=== PATIENT | male | born 1955 | race Caucasian/White ===

== ENCOUNTER → 2016-03-26 | Outpatient (CLI) | payer OTHER ==
[2016-03-26 13:16] LABS: MEAN CORPUSCULAR HEMOGLOBIN 31.1 pg (27.0-33.0); MEAN CORPUSCULAR HGB CONC 32.7 g/dl (32.0-36.5); WHITE BLOOD COUNT 3.2 K/mm3 (4.0-10.0)
[2016-03-26 13:18] LABS: ALBUMIN 3.8 GM/DL (3.2-5.2); ALBUMIN/GLOBULIN RATIO 1.36 (1.00-1.93); ALKALINE PHOSPHATASE 49 U/L (45-117); ALT/SGPT 29 U/L (12-78); ANION GAP 6 MEQ/L (8-16); AST/SGOT 18 U/L (15-37); BILIRUBIN,TOTAL 0.6 MG/DL (0.2-1.0); BLOOD UREA NITROGEN 20 MG/DL (7-18); CALCIUM LEVEL 8.9 MG/DL (8.8-10.2); CARBON DIOXIDE LEVEL 33 MEQ/L (21-32); CHLORIDE LEVEL 104 MEQ/L (98-107); CHOLESTEROL LEVEL 192 MG/DL (<200); GLOMERULAR FILTRATION RATE > 60.0 (>49); GLUCOSE, FASTING 97 MG/DL (80-110); POTASSIUM SERUM 4.1 MEQ/L (3.5-5.1); SODIUM LEVEL 143 MEQ/L (136-145); TOTAL PROTEIN 6.6 GM/DL (6.4-8.2); TRIGLYCERIDES LEVEL 75 MG/DL (<150)
== END ==
LOC: M WUC 09:16
PROVIDERS: ATTEND Family Medicine
DX: E78.5 Hyperlipidemia, unspecified (principal); E29.1 Testicular hypofunction

== ENCOUNTER → 2016-10-01 | Outpatient (CLI) | payer OTHER ==
[2016-10-01 14:07] LABS: MEAN CORPUSCULAR HEMOGLOBIN 32.1 pg (27.0-33.0); MEAN CORPUSCULAR HGB CONC 32.7 g/dl (32.0-36.5); MEAN CORPUSCULAR VOLUME 98.2 fl (80.0-96.0); RED CELL DISTRIBUTION WIDTH 12.6 % (11.5-14.5); WHITE BLOOD COUNT 3.2 K/mm3 (4.0-10.0)
[2016-10-01 14:16] LABS: ALBUMIN 3.9 GM/DL (3.2-5.2); ALBUMIN/GLOBULIN RATIO 1.34 (1.00-1.93); ALKALINE PHOSPHATASE 52 U/L (45-117); ALT/SGPT 26 U/L (12-78); ANION GAP 6 MEQ/L (8-16); AST/SGOT 17 U/L (15-37); BILIRUBIN,TOTAL 0.6 MG/DL (0.2-1.0); BLOOD UREA NITROGEN 26 MG/DL (7-18); CARBON DIOXIDE LEVEL 30 MEQ/L (21-32); CHLORIDE LEVEL 106 MEQ/L (98-107); CHOLESTEROL LEVEL 174 MG/DL (<200); GLOMERULAR FILTRATION RATE > 60.0 (>49); GLUCOSE, FASTING 90 MG/DL (80-110); POTASSIUM SERUM 4.3 MEQ/L (3.5-5.1); SODIUM LEVEL 142 MEQ/L (136-145); TOTAL PROTEIN 6.8 GM/DL (6.4-8.2); TRIGLYCERIDES LEVEL 68 MG/DL (<150)
== END ==
LOC: M WUC 08:52
PROVIDERS: ATTEND Family Medicine
DX: F32.9 Major depressive disorder, single episode, unspecified (principal); E29.1 Testicular hypofunction; Z79.899 Other long term (current) drug therapy; Z12.5 Encounter for screening for malignant neoplasm of prostate

== ENCOUNTER → 2017-12-08 | Outpatient (REF) | payer OTHER | LOC: M SFHCLERA 08:57 | DX: L82.1 Other seborrheic keratosis (principal) | CPT/HCPCS: 88305 ==

== ENCOUNTER → 2018-04-07 | Outpatient (CLI) | payer OTHER ==
[2018-04-07 13:38] LABS: HEMOGLOBIN 13.6 g/dl (13.5-17.5); MEAN CORPUSCULAR HEMOGLOBIN 30.9 pg (27.0-33.0); MEAN CORPUSCULAR HGB CONC 32.4 g/dl (32.0-36.5); MEAN CORPUSCULAR VOLUME 95.5 fl (80.0-96.0); PLATELET COUNT, AUTOMATED 274 10^3/uL (150-450); WHITE BLOOD COUNT 4.7 10^3/uL (4.0-10.0)
[2018-04-07 13:52] LABS: ALBUMIN 3.6 GM/DL (3.2-5.2); ALT/SGPT 21 U/L (12-78); BILIRUBIN,TOTAL 0.4 MG/DL (0.2-1.0); BLOOD UREA NITROGEN 22 MG/DL (7-18); CALCIUM LEVEL 8.9 MG/DL (8.8-10.2); CARBON DIOXIDE LEVEL 32 MEQ/L (21-32); CHLORIDE LEVEL 102 MEQ/L (98-107); CHOLESTEROL LEVEL 184 MG/DL (<200); CHOLESTEROL RISK RATIO 3.345 (<5); CREATININE FOR GFR 1.07 MG/DL (0.70-1.30); GLOMERULAR FILTRATION RATE > 60.0 (>49); GLUCOSE, FASTING 97 MG/DL (70-100); HDL CHOLESTEROL 55 MG/DL (>40); LDL CHOLESTEROL 117 MG/DL (<100); NON-HDL-C 129 MG/DL; POTASSIUM SERUM 4.3 MEQ/L (3.5-5.1); SODIUM LEVEL 140 MEQ/L (136-145); TESTOSTERONE 831 NG/DL (241-827); TOTAL PROTEIN 6.7 GM/DL (6.4-8.2); TRIGLYCERIDES LEVEL 61 MG/DL (<150)
== END ==
LOC: M WUC 09:18
PROVIDERS: ATTEND Family Medicine
DX: Z79.899 Other long term (current) drug therapy (principal); E78.5 Hyperlipidemia, unspecified

== ENCOUNTER → 2019-01-31 | Outpatient (CLI) | payer OTHER, MEDICARE ==
--- NOTE | 2019-01-31 09:34 | REP ---
Two-view chest: 01/31/2019. Indication: Cough. Bronchitis. Comparison: None. Findings: No focal airspace consolidation is present. There is minimal linear atelectasis of the lung bases. There is no pleural effusion or pneumothorax. The cardiomediastinal silhouette is unremarkable. Surgical anchor of the right proximal humerus is noted. Impression: No acute cardiopulmonary process. Electronically Signed by Garo Gatica DO 01/31/2019 09:26 A
== END ==
LOC: M ADAMS 08:45
PROVIDERS: ATTEND Family Medicine
DX: J20.8 Acute bronchitis due to other specified organisms (principal)

== ENCOUNTER → 2019-02-09 | Outpatient (REF) | payer MEDICARE, OTHER ==
[2019-02-09 18:09] LABS: HEMATOCRIT 43.8 % (42.0-52.0); HEMOGLOBIN 13.5 g/dl (13.5-17.5); MEAN CORPUSCULAR HEMOGLOBIN 29.9 pg (27.0-33.0); MEAN CORPUSCULAR HGB CONC 30.8 g/dl (32.0-36.5); MEAN CORPUSCULAR VOLUME 97.1 fl (80.0-96.0); PLATELET COUNT, AUTOMATED 300 10^3/uL (150-450); RED BLOOD COUNT 4.51 10^6/uL (4.30-6.10); WHITE BLOOD COUNT 6.3 10^3/uL (4.0-10.0)
[2019-02-09 18:35] LABS: MONO SCRN NEGATIVE (NEGATIVE)
[2019-02-09 18:36] LABS: ALBUMIN 3.6 GM/DL (3.2-5.2); ALT/SGPT 20 U/L (12-78); BILIRUBIN,TOTAL 0.3 MG/DL (0.2-1.0); BLOOD UREA NITROGEN 31 MG/DL (7-18); C REACTIVE PROTEIN QUANTITATIV 2.67 MG/DL (0.00-0.30); CALCIUM LEVEL 9.5 MG/DL (8.8-10.2); CARBON DIOXIDE LEVEL 33 MEQ/L (21-32); CHLORIDE LEVEL 103 MEQ/L (98-107); CREATININE FOR GFR 1.04 MG/DL (0.70-1.30); GLOMERULAR FILTRATION RATE > 60.0 (>49); GLUCOSE, FASTING 82 MG/DL (70-100); POTASSIUM SERUM 4.4 MEQ/L (3.5-5.1); SODIUM LEVEL 139 MEQ/L (136-145); TOTAL PROTEIN 7.7 GM/DL (6.4-8.2)
[2019-02-09 18:44] LABS: ERYTHROCYTE SEDIMENTATION RATE 45 mm/hr (0-20)
== END ==
LOC: M SFHCPLAZ 16:40
PROVIDERS: ATTEND Physician Assistant Medical
DX: R50.9 Fever, unspecified (principal); R05 Cough

== ENCOUNTER → 2019-02-13 | Outpatient (CLI) | payer MEDICARE, OTHER | LOC: M LAB 11:09 | PROVIDERS: ATTEND Physician Assistant Medical | DX: R50.9 Fever, unspecified (principal) ==

== ENCOUNTER → 2019-02-17 | Outpatient (CLI) | payer MEDICARE, OTHER ==
[~2019-02-17] MED LIST: ISOVUE-370 76% 100ML VIAL (Q9967) As Ordered ONE
--- NOTE | 2019-02-17 08:39 | REP ---
Clinical: Cough and fever. Technique: Axial contrast enhanced images from the thoracic inlet to the upper abdomen with coronal and sagittal re-formations. Findings: The bilateral lung fuchs are relatively well aerated and clear. Minimal age-related interstitial changes are appreciated along with mild bronchiectasis. There is a solitary 4 mm noncalcified perifissural nodule at the lingula (image 73). No consolidation. No effusion. No pneumothorax. Mediastinal and hilar lymph nodes measure up to 13 mm and are nonspecific. Further evaluation of the mediastinum demonstrates relatively normal thoracic aorta, pulmonary vasculature, and heart/pericardium. Surrounding musculoskeletal structures are intact. Impression: 4 mm solitary noncalcified nodule. Low-risk patient is require annual follow-up while high risk patient may warrant initial 6-month follow-up examination unless prior examinations are available for comparison. Electronically Signed by Willam Borrego MD 02/17/2019 08:31 A
--- NOTE | 2019-02-17 08:58 | REPVR ---
PROCEDURE INFORMATION: Exam: CT Maxillofacial Without Contrast, Sinus Exam date and time: 02/17/2019 7:44 AM Age: 63 years old Clinical indication: Pain; Prior surgery; Surgery date: 6+ months; Surgery type: Sinus surgery 5 years ago; Additional info: Cough, fever unspecified nasal inf? TECHNIQUE: Imaging protocol: CT Maxillofacial without contrast. Focus on the sinuses. Radiation optimization: All CT scans at this facility use at least one of these dose optimization techniques: automated exposure control; mA and/or kV adjustment per patient size (includes targeted exams where dose is matched to clinical indication); or iterative reconstruction. COMPARISON: No relevant prior studies available. FINDINGS: Frontal sinuses: No air-fluid levels. Ethmoid air cells: Bilateral medial maxillary antrostomy and partial ethmoidectomy. Sphenoid sinuses: Normal. No air-fluid levels. Maxillary sinuses: Normal. No air-fluid levels. Ostiomeatal units are patent. Orbits: Examination reveals bilateral globes to be normal in size and morphology. The optic nerves are normal in thickness and symmetric bilaterally. The extraocular muscles are normal in thickness and signal intensity. The retroconal fat has a normal appearance. The lacrimal glands appear normal bilaterally. Nasal cavity/Septum: The nasal septum is in the midline. There is atrophy of bilateral nasal turbinates. Soft tissues: Unremarkable. Bones/joints: The visualized paranasal sinuses are clear. There are no air fluid levels to suggest acute sinusitis. The bony orbital lentz are intact. No fractures are identified. IMPRESSION: 1. Bilateral medial maxillary antrostomy and partial ethmoidectomy. 2. The visualized paranasal sinuses are clear. There are no air fluid levels to suggest acute sinusitis. 3. The nasal septum is in the midline. 4. There is atrophy of bilateral nasal turbinates. Electronically signed by: Quintin Jones On 02/17/2019 08:58:26 AM
== END ==
LOC: M RAD 07:28
PROVIDERS: ATTEND Physician Assistant Medical
DX: R05 Cough (principal); R50.9 Fever, unspecified
CPT/HCPCS: 70486; 71260; Q9967

== ENCOUNTER → 2019-02-24 | Outpatient (CLI) | payer MEDICARE, OTHER ==
[2019-02-24 14:01] LABS: BASO % 0.7 % (0.0-1.0); EOS % 0.2 % (0.0-3.0); HEMATOCRIT 43.7 % (42.0-52.0); HEMOGLOBIN 13.3 g/dl (13.5-17.5); LYMPH % 17.4 % (24.0-44.0); MEAN CORPUSCULAR HEMOGLOBIN 29.7 pg (27.0-33.0); MEAN CORPUSCULAR HGB CONC 30.4 g/dl (32.0-36.5); MEAN CORPUSCULAR VOLUME 97.5 fl (80.0-96.0); MONO # 0.5 10^3/uL (0.0-0.8); MONO % 8.9 % (0.0-5.0); NEUTROPHILS # 4.2 10^3/uL (1.5-8.5); NEUTROPHILS % 71.4 % (36.0-66.0); PLATELET COUNT, AUTOMATED 269 10^3/uL (150-450); RED BLOOD COUNT 4.48 10^6/uL (4.30-6.10); WHITE BLOOD COUNT 5.8 10^3/uL (4.0-10.0)
[2019-02-24 14:38] LABS: ERYTHROCYTE SEDIMENTATION RATE 12 mm/hr (0-20)
== END ==
LOC: M PLALAB 11:18
PROVIDERS: ATTEND Family Medicine
DX: R50.9 Fever, unspecified (principal)

== ENCOUNTER → 2019-03-28 | Outpatient (REF) | payer MEDICARE, OTHER ==
[2019-03-28 13:08] LABS: HEMATOCRIT 47.2 % (42.0-52.0); HEMOGLOBIN 14.3 g/dl (13.5-17.5); MEAN CORPUSCULAR HEMOGLOBIN 29.6 pg (27.0-33.0); MEAN CORPUSCULAR HGB CONC 30.3 g/dl (32.0-36.5); MEAN CORPUSCULAR VOLUME 97.7 fl (80.0-96.0); PLATELET COUNT, AUTOMATED 268 10^3/uL (150-450); RED BLOOD COUNT 4.83 10^6/uL (4.30-6.10); WHITE BLOOD COUNT 4.4 10^3/uL (4.0-10.0)
[2019-03-28 13:14] LABS: ALBUMIN 4.2 GM/DL (3.2-5.2); ALT/SGPT 24 U/L (12-78); BILIRUBIN,TOTAL 0.3 MG/DL (0.2-1.0); BLOOD UREA NITROGEN 27 MG/DL (7-18); CALCIUM LEVEL 9.1 MG/DL (8.8-10.2); CARBON DIOXIDE LEVEL 33 MEQ/L (21-32); CHLORIDE LEVEL 104 MEQ/L (98-107); CHOLESTEROL LEVEL 191 MG/DL (<200); CREATININE FOR GFR 0.91 MG/DL (0.70-1.30); GLOMERULAR FILTRATION RATE > 60.0 (>49); GLUCOSE, FASTING 93 MG/DL (70-100); HDL CHOLESTEROL 62 MG/DL (>40); LDL CHOLESTEROL 110 MG/DL (<100); NON-HDL-C 129 MG/DL; SODIUM LEVEL 140 MEQ/L (136-145); TOTAL PROTEIN 7.6 GM/DL (6.4-8.2); TRIGLYCERIDES LEVEL 94 MG/DL (<150)
[2019-03-28 13:18] LABS: TESTOSTERONE 405 NG/DL (241-827)
== END ==
LOC: M SFHCADAM 10:23
PROVIDERS: ATTEND Family Medicine
DX: E78.5 Hyperlipidemia, unspecified (principal); E34.9 Endocrine disorder, unspecified; Z12.5 Encounter for screening for malignant neoplasm of prostate; Z79.899 Other long term (current) drug therapy
CPT/HCPCS: 80053; 80061; 84403; 85027; G0103; G0402; G0463

== ENCOUNTER → 2020-03-05 | Outpatient (CLI) | payer MEDICARE, OTHER ==
[2020-03-05 18:03] LABS: HEMATOCRIT 43.9 % (42.0-52.0); HEMOGLOBIN 13.7 g/dl (13.5-17.5); MEAN CORPUSCULAR HEMOGLOBIN 30.6 pg (27.0-33.0); MEAN CORPUSCULAR HGB CONC 31.2 g/dl (32.0-36.5); PLATELET COUNT, AUTOMATED 225 10^3/uL (150-450); RED BLOOD COUNT 4.48 10^6/uL (4.30-6.10); WHITE BLOOD COUNT 4.9 10^3/uL (4.0-10.0)
[2020-03-05 18:15] LABS: ALBUMIN 3.8 GM/DL (3.2-5.2); ALT/SGPT 21 U/L (12-78); BILIRUBIN,TOTAL 0.4 MG/DL (0.2-1.0); BLOOD UREA NITROGEN 24 MG/DL (7-18); CALCIUM LEVEL 9.1 MG/DL (8.8-10.2); CARBON DIOXIDE LEVEL 33 MEQ/L (21-32); CHLORIDE LEVEL 106 MEQ/L (98-107); CHOLESTEROL LEVEL 177 MG/DL (<200); CHOLESTEROL RISK RATIO 2.765 (<5); CREATININE FOR GFR 0.93 MG/DL (0.70-1.30); GLOMERULAR FILTRATION RATE > 60.0 (>49); GLUCOSE, FASTING 58 MG/DL (70-100); HDL CHOLESTEROL 64 MG/DL (>40); LDL CHOLESTEROL 95 MG/DL (<100); NON-HDL-C 113 MG/DL; POTASSIUM SERUM 4.6 MEQ/L (3.5-5.1); SODIUM LEVEL 140 MEQ/L (136-145); TOTAL PROTEIN 6.9 GM/DL (6.4-8.2); TRIGLYCERIDES LEVEL 91 MG/DL (<150)
[2020-03-05 18:16] LABS: TOTAL 25(OH) VITAMIN D 31.2 NG/ML (30.0-100.0)
[2020-03-05 18:17] LABS: VITAMIN B12 LEVEL 549 PG/ML (247-911)
[2020-03-07 18:07] LABS: TESTOSTERONE FREE (DIRECT) 7.3 pg/mL (6.6-18.1)
== END ==
LOC: M PLALAB 15:23
PROVIDERS: ATTEND Family Medicine
DX: Z12.5 Encounter for screening for malignant neoplasm of prostate (principal); F32.9 Major depressive disorder, single episode, unspecified; Z79.899 Other long term (current) drug therapy
CPT/HCPCS: 36415; 80053; 80061; 82306; 82607; 84402; 84403; 85027; G0103

== ENCOUNTER → 2020-04-17 | Outpatient (CLI) | payer MEDICARE, OTHER ==
[~2020-04-17] MED LIST changes: +E-Z-GAS II EFFERVESCENT PACKET (SODIUM BICARB./CITRIC ACID/SIMETHICONE) As Ordered ONE; +E-Z-HD 98% w/w 340GM SUSP BTL As Ordered ONE; +E-Z-PAQUE 96% w/w SUSP 176GM BTL As Ordered ONE; -ISOVUE-370 76% 100ML VIAL (Q9967) As Ordered ONE
--- NOTE | 2020-04-17 18:17 | REP ---
INDICATION: DYSPHAGIA, GERD. COMPARISON: None TECHNIQUE: This procedure was performed by Megan Adame [facility], under the direct supervision of Dr. Betts. Images were reviewed with Dr. Betts prior to dictation. Liquid barium and gas producing crystals were given in the erect position, as well as liquid barium in the prone oblique position in order to perform a double contrast upper GI examination. FINDINGS: The transplanter orchid film shows no organomegaly or pathological masses. The intestinal gas pattern is unremarkable. The oral and pharyngeal stages of deglutition were unremarkable. Esophageal transport is prompt and efficient and there is no evidence of esophagitis, stricture, or mucosal ring. There is no evidence of a hiatal hernia. There was no gastroesophageal reflux noted . The stomach lentz are normally outlined. The rugal folds are smooth and regular. There is no gastritis, neoplasm, or ulcerative disease. The duodenal lentz are normally outlined. The mucosal folds are smooth and regular. There is no duodenitis, peptic ulcer disease or neoplasm. The visualized portion of the proximal small bowel appears normal in course and caliber. IMPRESSION: Unremarkable esophagram. 0.2 minutes of fluoroscopy time was utilized for this procedure. Some fluoroscopic images are performed with last image hold technology. These images require no additional radiation. <Electronically signed by Megan Adame > 04/17/20 [id number] <Electronically signed by Yordan Betts > 04/17/20 [id number]
== END ==
LOC: M RAD 08:32
PROVIDERS: ATTEND Physician Assistant Medical
DX: R13.10 Dysphagia, unspecified (principal); K21.9 Gastro-esophageal reflux disease without esophagitis

== ENCOUNTER → 2020-05-05 | Outpatient (CLI) | payer MEDICARE ==
[~2020-05-05] MED LIST changes: -E-Z-GAS II EFFERVESCENT PACKET (SODIUM BICARB./CITRIC ACID/SIMETHICONE) As Ordered ONE; -E-Z-HD 98% w/w 340GM SUSP BTL As Ordered ONE; -E-Z-PAQUE 96% w/w SUSP 176GM BTL As Ordered ONE; +VENL37.598
== END ==
LOC: M LABSMTC 10:23
PROVIDERS: ATTEND Anesthesiology
DX: Z01.812 Encounter for preprocedural laboratory examination (principal); Z20.822 Contact with and (suspected) exposure to COVID-19

== ENCOUNTER 2020-05-10 09:28 | Day surgery (SDC) | payer MEDICARE ==
[~2020-05-10] VITALS: Ht 180.3 cm; Wt 74.8 kg
[~2020-05-10 09:28] MED LIST changes: +ANDR1.62 TOP; +NS 1,000 ML IV ONE; +VITA-243 PO; +VITAD400CA PO
[2020-05-10] MEDS ORDERED: LIDOCAINE 2% 100MG/5ML SDV (FOR ANES.) As Ordered ONE (12:40)
[2020-05-10] MEDS ORDERED: propofoL 500 MG/50 ML VIAL As Ordered ONE (12:40)
[2020-05-10] MEDS ORDERED: fentaNYL 100 MCG/2 ML INJECTION (J3010) As Ordered ONE (12:40)
[2020-05-10] MEDS ORDERED: propofoL 200 MG/20 ML VIAL As Ordered ONE (12:41)
[2020-05-10] MEDS ORDERED: ePHEDrine SULFATE 25 MG/5 ML(5MG/ML) SYRINGE As Ordered ONE (12:54)
--- NOTE | 2020-05-10 13:09 | ROOR ---
Patient Name: Eagle Tse Procedure Date: 05/10/2020 12:22 PM Date of : 1955 Age: 64 Room: [facility] Gender: Male Note Status: Finalized Procedure: Upper GI endoscopy Indications: Dysphagia Providers: Brett Babb MD Referring MD: Prasanna Lovelace MD Requesting Provider: Medicines: Monitored Anesthesia Care Complications: No immediate complications. Procedure: Pre-Anesthesia Assessment: - Prior to the procedure, a History and Physical was performed, and patient medications and allergies were reviewed. The patient is competent. The risks and benefits of the procedure and the sedation options and risks were discussed with the patient. All questions were answered and informed consent was obtained. Patient identification and proposed procedure were verified by the physician, the nurse and the anesthesiologist in the procedure room. Mental Status Examination: alert and oriented. Airway Examination: normal oropharyngeal airway and neck mobility. Respiratory Examination: clear to auscultation. CV Examination: normal. Prophylactic Antibiotics: The patient does not require prophylactic antibiotics. Prior Anticoagulants: The patient has taken no previous anticoagulant or antiplatelet agents. ASA Grade Assessment: II - A patient with mild systemic disease. After reviewing the risks and benefits, the patient was deemed in satisfactory condition to undergo the procedure. The anesthesia plan was to use monitored anesthesia care (MAC). Immediately prior to administration of medications, the patient was re-assessed for adequacy to receive sedatives. The heart rate, respiratory rate, oxygen saturations, blood pressure, adequacy of pulmonary ventilation, and response to care were monitored throughout the procedure. The physical status of the patient was re-assessed after the procedure. The Endoscope was introduced through the mouth, and advanced to the second part of duodenum. The upper GI endoscopy was accomplished without difficulty. The patient tolerated the procedure well. Findings: LA Grade B (one or more mucosal breaks greater than 5 mm, not extending between the tops of two mucosal folds) esophagitis with no bleeding was found 40 to 41 cm from the incisors. Biopsies were taken with a cold forceps for histology. Verification of patient identification for the specimen was done by the physician and nurse using the patient's name, date and medical record number. Estimated blood loss was minimal. A small hiatal hernia was present. Scattered mild inflammation characterized by erythema and granularity was found in the gastric antrum. Biopsies were taken with a cold forceps for Helicobacter pylori testing. The duodenal bulb and second portion of the duodenum were normal. Impression: - LA Grade B reflux esophagitis. Rule out Hester's esophagus. Biopsied. - Small hiatal hernia. - Gastritis. Biopsied. - Normal duodenal bulb and second portion of the duodenum. Recommendation: - Patient has a contact number available for emergencies. The signs and symptoms of potential delayed complications were discussed with the patient. Return to normal activities tomorrow. Written discharge instructions were provided to the patient. - High fiber diet. - Continue present medications. - Await pathology results. - Follow an antireflux regimen. - Telephone GI clinic for pathology results in 2 weeks. - Return to primary care physician. Procedure Code(s): --- Professional --- 56002, Esophagogastroduodenoscopy, flexible, transoral; with biopsy, single or multiple Diagnosis Code(s): --- Professional --- K21.0, Gastro-esophageal reflux disease with esophagitis K44.9, Diaphragmatic hernia without obstruction or gangrene K29.70, Gastritis, unspecified, without bleeding R13.10, Dysphagia, unspecified CPT copyright 2019 [employer]. All rights reserved. The codes documented in this report are preliminary and upon patented hogshead assembler review may be revised to meet current compliance requirements. Brett Babb MD Brett Babb MD 05/10/2020 1:09:00 PM Electronically signed by Brett Babb MD Number of Addenda: 0 Note Initiated On: 05/10/2020 12:22 PM Estimated Blood Loss: Estimated blood loss was minimal.
--- NOTE | 2020-05-10 13:13 | ROOR ---
Patient Name: Eagle Tse Procedure Date: 05/10/2020 12:22 PM Date of : 1955 Age: 64 Room: [facility] Gender: Male Note Status: Finalized Procedure: Colonoscopy Indications: Screening for colorectal malignant neoplasm Providers: Brett Babb MD Referring MD: Prasanna Lovelace MD Requesting Provider: Medicines: Monitored Anesthesia Care Complications: No immediate complications. Procedure: Pre-Anesthesia Assessment: - Prior to the procedure, a History and Physical was performed, and patient medications and allergies were reviewed. The patient is competent. The risks and benefits of the procedure and the sedation options and risks were discussed with the patient. All questions were answered and informed consent was obtained. Patient identification and proposed procedure were verified by the physician, the nurse and the anesthesiologist in the procedure room. Mental Status Examination: alert and oriented. Airway Examination: normal oropharyngeal airway and neck mobility. Respiratory Examination: clear to auscultation. CV Examination: normal. Prophylactic Antibiotics: The patient does not require prophylactic antibiotics. Prior Anticoagulants: The patient has taken no previous anticoagulant or antiplatelet agents. ASA Grade Assessment: II - A patient with mild systemic disease. After reviewing the risks and benefits, the patient was deemed in satisfactory condition to undergo the procedure. The anesthesia plan was to use monitored anesthesia care (MAC). Immediately prior to administration of medications, the patient was re-assessed for adequacy to receive sedatives. The heart rate, respiratory rate, oxygen saturations, blood pressure, adequacy of pulmonary ventilation, and response to care were monitored throughout the procedure. The physical status of the patient was re-assessed after the procedure. The Colonoscope was introduced through the anus and advanced to the cecum, identified by appendiceal orifice and ileocecal valve. The colonoscopy was performed without difficulty. The patient tolerated the procedure well. The quality of the bowel preparation was poor. The terminal ileum, ileocecal valve, appendiceal orifice, and rectum were photographed. Scope insertion time was 2 minutes. Scope withdrawal time was 8 minutes. The total duration of the procedure was 10 minutes. Findings: The perianal and digital rectal examinations were normal. A large amount of semi-liquid semi-solid stool was found from sigmoid to cecum, interfering with visualization. Lavage of the area was performed using a large amount of sterile water, resulting in incomplete clearance with continued poor visualization. Four sessile polyps were found in the recto-sigmoid colon and ascending colon. The polyps were 2 to 4 mm in size. These polyps were removed with a cold snare. Resection and retrieval were complete. Verification of patient identification for the specimen was done by the physician and nurse using the patient's name, date and medical record number. Estimated blood loss was minimal. Non-bleeding external and internal hemorrhoids were found during retroflexion. The hemorrhoids were medium-sized. Impression: - Preparation of the colon was poor. - Stool from sigmoid to cecum. - Four 2 to 4 mm polyps at the recto-sigmoid colon and in the ascending colon, removed with a cold snare. Resected and retrieved. - Non-bleeding external and internal hemorrhoids. Recommendation: - Patient has a contact number available for emergencies. The signs and symptoms of potential delayed complications were discussed with the patient. Return to normal activities tomorrow. Written discharge instructions were provided to the patient. - High fiber diet. - Continue present medications. - Await pathology results. - Repeat colonoscopy in 1 year because the bowel preparation was poor and for surveillance. - Telephone GI clinic for pathology results in 2 weeks. - Return to primary care physician. Procedure Code(s): --- Professional --- 83043, Colonoscopy, flexible; with removal of tumor(s), polyp(s), or other lesion(s) by snare technique Diagnosis Code(s): --- Professional --- Z12.11, Encounter for screening for malignant neoplasm of colon K64.8, Other hemorrhoids K63.5, Polyp of colon CPT copyright 2019 [employer]. All rights reserved. The codes documented in this report are preliminary and upon pre coder review may be revised to meet current compliance requirements. Brett Babb MD Brett Babb MD 05/10/2020 1:13:15 PM Electronically signed by Brett Babb MD Number of Addenda: 0 Note Initiated On: 05/10/2020 12:22 PM Estimated Blood Loss: Estimated blood loss was minimal.
[2020-05-10 13:41] VITALS: BP 102/68
== END 2020-05-10 13:50 | disposition home or self-care (01) ==
LOC: M OPP 09:28
PROVIDERS: ATTEND Internal Medicine Gastroenterology
DX: Z12.11 Encounter for screening for malignant neoplasm of colon (principal); K63.5 Polyp of colon; K64.8 Other hemorrhoids; K21.00 Gastro-esophageal reflux disease with esophagitis, without bleeding; K44.9 Diaphragmatic hernia without obstruction or gangrene; K29.70 Gastritis, unspecified, without bleeding; R13.10 Dysphagia, unspecified; Z79.899 Other long term (current) drug therapy
CPT/HCPCS: 43239; 45385; 88305; J3010

== ENCOUNTER → 2020-12-05 | Outpatient (REF) | payer MEDICARE, OTHER ==
[~2020-12-05] MED LIST changes: -NS 1,000 ML IV ONE
[2020-12-05 14:09] LABS: HEMATOCRIT 46.3 % (42.0-52.0); HEMOGLOBIN 14.3 g/dl (13.5-17.5); MEAN CORPUSCULAR HEMOGLOBIN 30.6 pg (27.0-33.0); MEAN CORPUSCULAR HGB CONC 30.9 g/dl (32.0-36.5); MEAN CORPUSCULAR VOLUME 99.1 fl (80.0-96.0); PLATELET COUNT, AUTOMATED 216 10^3/uL (150-450); RED BLOOD COUNT 4.67 10^6/uL (4.30-6.10); WHITE BLOOD COUNT 3.8 10^3/uL (4.0-10.0)
[2020-12-05 14:54] LABS: ALBUMIN 3.9 GM/DL (3.2-5.2); ALT/SGPT 22 U/L (12-78); BILIRUBIN,TOTAL 0.4 MG/DL (0.2-1.0); BLOOD UREA NITROGEN 26 MG/DL (7-18); CALCIUM LEVEL 8.9 MG/DL (8.8-10.2); CARBON DIOXIDE LEVEL 31 MEQ/L (21-32); CHLORIDE LEVEL 106 MEQ/L (98-107); CHOLESTEROL LEVEL 203 MG/DL (<200); CHOLESTEROL RISK RATIO 2.859 (<5); CREATININE FOR GFR 1.11 MG/DL (0.70-1.30); FREE T4 0.73 NG/DL (0.76-1.46); GLOMERULAR FILTRATION RATE > 60.0 (>49); GLUCOSE, FASTING 94 MG/DL (70-100); HDL CHOLESTEROL 71 MG/DL (>40); LDL CHOLESTEROL 115 MG/DL (<100); NON-HDL-C 132 MG/DL; POTASSIUM SERUM 4.3 MEQ/L (3.5-5.1); SODIUM LEVEL 141 MEQ/L (136-145); TESTOSTERONE 689 NG/DL (241-827); TOTAL PROTEIN 7.4 GM/DL (6.4-8.2); TRIGLYCERIDES LEVEL 84 MG/DL (<150)
== END ==
LOC: M SFHCADAM 10:02
PROVIDERS: ATTEND Family Medicine
DX: F32.9 Major depressive disorder, single episode, unspecified (principal); E78.5 Hyperlipidemia, unspecified; Z12.5 Encounter for screening for malignant neoplasm of prostate; E34.9 Endocrine disorder, unspecified; Z79.899 Other long term (current) drug therapy; R91.1 Solitary pulmonary nodule; H93.19 Tinnitus, unspecified ear; Z00.00 Encounter for general adult medical examination without abnormal findings
CPT/HCPCS: 80053; 80061; 84403; 84439; 84443; 85027; 90732; G0009; G0103; G0463

== ENCOUNTER → 2020-12-13 | Outpatient (CLI) | payer MEDICARE, OTHER ==
--- NOTE | 2020-12-13 11:41 | REP ---
INDICATION: PULMONARY NODULE ON LUNG CT COMPARISON: 02/17/2019 TECHNIQUE: Standard helical technique without contrast FINDINGS: There is no mediastinal or hilar adenopathy. There are no pleural or pericardial effusions. The imaged upper abdomen and imaged osseous structures are unchanged. Evaluation of the lung fuchs shows the 4 mm size nodule seen previously in the lingula is completely stable. There is a 4 mm size nodule in the right lower lobe which is stable. There is a 3 mm size nodule in the right lower lobe which is stable. There is a 7 mm size nodule in the apicoposterior segment of the left upper lobe medially which is stable. No new abnormal nodules, masses, or opacities have developed. IMPRESSION: Stable CT examination the chest with findings as described above. Follow-up as per the revised Fleischner society criteria. <Electronically signed by Salbador Palacios > 12/13/20 [id number]
== END ==
LOC: M RAD 08:48
PROVIDERS: ATTEND Family Medicine
DX: R91.8 Other nonspecific abnormal finding of lung field (principal)

== ENCOUNTER → 2021-04-04 | Outpatient (CLI) | payer MEDICARE | LOC: M LABSMTC 13:07 | PROVIDERS: ATTEND Pediatrics | DX: Z11.52 Encounter for screening for COVID-19 (principal); Z20.822 Contact with and (suspected) exposure to COVID-19 | CPT/HCPCS: C9803; U0003 ==

== ENCOUNTER → 2021-05-28 | Outpatient (CLI) | payer MEDICARE ==
[~2021-05-28] MED LIST changes: +PROT20TA11 PO; -VENL37.598; +VENL37.598 PO; +VENL75CA2 PO
== END ==
LOC: M LABSMTC 09:42
PROVIDERS: ATTEND Anesthesiology
DX: Z01.818 Encounter for other preprocedural examination (principal); Z20.822 Contact with and (suspected) exposure to COVID-19

== ENCOUNTER 2021-06-02 09:13 | Day surgery (SDC) | payer MEDICARE ==
[~2021-06-02] VITALS: Ht 180.3 cm; Wt 76.1 kg
[~2021-06-02 09:13] MED LIST changes: +NS 1,000 ML IV ONE
[2021-06-02] MEDS ORDERED: fentaNYL 100 MCG/2 ML INJECTION As Ordered ONE ×2 (10:37→11:49)
[2021-06-02 11:35] VITALS: BP 107/62
[2021-06-02] MEDS ORDERED: propofoL 200 MG/20 ML VIAL As Ordered ONE (14:20)
[2021-06-02] MEDS ORDERED: LIDOCAINE 2% 100MG/5ML SDV (FOR ANES.) As Ordered ONE (14:20)
== END 2021-06-02 12:05 | disposition home or self-care (01) ==
LOC: M OPP 09:13
PROVIDERS: ATTEND Internal Medicine Gastroenterology
DX: Z12.11 Encounter for screening for malignant neoplasm of colon (principal); Z86.010 Personal history of colon polyps; K64.8 Other hemorrhoids; K21.00 Gastro-esophageal reflux disease with esophagitis, without bleeding; K44.9 Diaphragmatic hernia without obstruction or gangrene; K29.70 Gastritis, unspecified, without bleeding; Z79.899 Other long term (current) drug therapy
CPT/HCPCS: 43239; 88305; G0105; J3010

== ENCOUNTER → 2021-07-15 | Outpatient (CLI) | payer MEDICARE, OTHER ==
[~2021-07-15] MED LIST changes: -NS 1,000 ML IV ONE
[2021-07-15 13:13] LABS: HEMATOCRIT 44.1 % (42.0-52.0); MEAN CORPUSCULAR HEMOGLOBIN 31.3 pg (27.0-33.0); MEAN CORPUSCULAR HGB CONC 31.7 g/dl (32.0-36.5); MEAN CORPUSCULAR VOLUME 98.7 fl (80.0-96.0); PLATELET COUNT, AUTOMATED 205 10^3/uL (150-450); RED BLOOD COUNT 4.47 10^6/uL (4.30-6.10); WHITE BLOOD COUNT 3.6 10^3/uL (4.0-10.0)
[2021-07-15 14:00] LABS: ALBUMIN 3.7 GM/DL (3.2-5.2); ALT/SGPT 19 U/L (12-78); BILIRUBIN,TOTAL 0.5 MG/DL (0.2-1.0); BLOOD UREA NITROGEN 20 MG/DL (7-18); CALCIUM LEVEL 8.6 MG/DL (8.8-10.2); CARBON DIOXIDE LEVEL 30 MEQ/L (21-32); CHLORIDE LEVEL 108 MEQ/L (98-107); CHOLESTEROL LEVEL 190 MG/DL (<200); CHOLESTEROL RISK RATIO 2.714 (<5); CREATININE FOR GFR 1.02 MG/DL (0.70-1.30); GLOMERULAR FILTRATION RATE > 60.0 (>49); GLUCOSE, FASTING 97 MG/DL (70-100); HDL CHOLESTEROL 70 MG/DL (>40); LDL CHOLESTEROL 107 MG/DL (<100); NON-HDL-C 120 MG/DL; POTASSIUM SERUM 4.6 MEQ/L (3.5-5.1); SODIUM LEVEL 140 MEQ/L (136-145); TESTOSTERONE 269 NG/DL (241-827); TOTAL PROTEIN 6.8 GM/DL (6.4-8.2); TRIGLYCERIDES LEVEL 66 MG/DL (<150)
== END ==
LOC: M PLALAB 09:53
PROVIDERS: ATTEND Family Medicine
DX: F32.9 Major depressive disorder, single episode, unspecified (principal); Z79.899 Other long term (current) drug therapy; E29.1 Testicular hypofunction; Z12.5 Encounter for screening for malignant neoplasm of prostate; E78.5 Hyperlipidemia, unspecified
CPT/HCPCS: 36415; 80053; 80061; 84403; 85027; G0103

== ENCOUNTER → 2022-02-26 | Outpatient (CLI) | payer MEDICARE ==
[2022-02-28 04:07] LABS: TESTOSTERONE FREE (DIRECT) 4.2 pg/mL (6.6-18.1)
== END ==
LOC: M WUC 10:36
PROVIDERS: ATTEND Anesthesiology Pain Medicine
DX: E29.1 Testicular hypofunction (principal)

== ENCOUNTER → 2022-05-11 | Outpatient (CLI) | payer MEDICARE, OTHER | LOC: M WUC 08:42 | PROVIDERS: ATTEND Family Medicine | DX: Z86.39 Personal history of other endocrine, nutritional and metabolic disease (principal) ==

== ENCOUNTER → 2022-07-14 | Outpatient (CLI) | payer MEDICARE, OTHER | LOC: M ADAMS 12:03 | PROVIDERS: ATTEND Family Medicine | DX: M18.11 Unilateral primary osteoarthritis of first carpometacarpal joint, right hand (principal) ==

== ENCOUNTER → 2023-05-14 | Outpatient (REF) | payer MEDICARE | LOC: M LAB REF 11:25 | PROVIDERS: ATTEND Family Medicine | DX: Z86.39 Personal history of other endocrine, nutritional and metabolic disease (principal); Z79.899 Other long term (current) drug therapy ==

== ENCOUNTER → 2023-05-25 | Outpatient (REF) | payer MEDICARE ==
[2023-05-25 18:05] LABS: BLOOD UREA NITROGEN 24 MG/DL (9-23); CALCIUM LEVEL 9.3 MG/DL (8.3-10.6); CARBON DIOXIDE LEVEL 30 MMOL/L (20-31); CHLORIDE LEVEL 105 MMOL/L (98-107); CREATININE FOR GFR 0.92 MG/DL (0.70-1.30); GLOMERULAR FILTRATION RATE > 60.0 (>49); GLUCOSE, FASTING 106 MG/DL (74-106); POTASSIUM SERUM 4.6 MMOL/L (3.5-5.1); SODIUM LEVEL 141 MMOL/L (136-145)
== END ==
LOC: M SFHCADAM 13:33
PROVIDERS: ATTEND Family Medicine
DX: H81.09 Meniere's disease, unspecified ear (principal); H93.19 Tinnitus, unspecified ear

== ENCOUNTER → 2023-06-08 | Outpatient (CLI) | payer MEDICARE ==
[~2023-06-08] MED LIST changes: +PROHANCE 279.3MG/ML 15ML VIAL ONE
== END ==
LOC: M PLAIMG 13:35
PROVIDERS: ATTEND Family Medicine
DX: H81.09 Meniere's disease, unspecified ear (principal); H93.19 Tinnitus, unspecified ear; R90.82 White matter disease, unspecified
CPT/HCPCS: 70553; A9576

== ENCOUNTER → 2023-08-03 | Outpatient (CLI) | payer MEDICARE ==
[~2023-08-03] MED LIST changes: -PROHANCE 279.3MG/ML 15ML VIAL ONE
== END ==
LOC: M WUC 09:09
PROVIDERS: ATTEND Family Medicine
DX: Z86.39 Personal history of other endocrine, nutritional and metabolic disease (principal)

== ENCOUNTER → 2024-03-02 | Outpatient (CLI) | payer MEDICARE ==
[2024-03-02 13:35] LABS: HEMATOCRIT 44.4 % (42.0-52.0); HEMOGLOBIN 14.3 g/dl (13.5-17.5); MEAN CORPUSCULAR HEMOGLOBIN 31.2 pg (27.0-33.0); MEAN CORPUSCULAR HGB CONC 32.2 g/dl (32.0-36.5); MEAN CORPUSCULAR VOLUME 96.9 fl (80.0-96.0); PLATELET COUNT, AUTOMATED 238 10^3/uL (150-450); RED BLOOD COUNT 4.58 10^6/uL (4.30-6.10); WHITE BLOOD COUNT 3.7 10^3/uL (4.0-10.0)
[2024-03-02 13:38] LABS: PSA SCREENING 1.29 NG/ML (< 4.00)
[2024-03-02 13:41] LABS: ALKALINE PHOSPHATASE 62 U/L (40-129); ALT/SGPT 18 U/L (7.0-40); AST/SGOT 15 U/L (<34); BILIRUBIN,TOTAL 0.6 MG/DL (0.3-1.2); BLOOD UREA NITROGEN 21 MG/DL (9-23); CALCIUM LEVEL 9.5 MG/DL (8.3-10.6); CARBON DIOXIDE LEVEL 32 MMOL/L (20-31); CHLORIDE LEVEL 108 MMOL/L (98-107); CHOLESTEROL LEVEL 215 MG/DL (<200); CHOLESTEROL RISK RATIO 3.38 (<5); CREATININE FOR GFR 0.98 MG/DL (0.70-1.30); GLOMERULAR FILTRATION RATE > 60.0 (>42); GLUCOSE, FASTING 105 MG/DL (74-106); HDL CHOLESTEROL 63.5 MG/DL (>40); LDL CHOLESTEROL 128.9 MG/DL (<100); NON-HDL-C 151.5 MG/DL; POTASSIUM SERUM 4.2 MMOL/L (3.5-5.1); SODIUM LEVEL 143 MMOL/L (136-145); TOTAL PROTEIN 6.9 G/DL (5.7-8.2); TRIGLYCERIDES LEVEL 113 MG/DL (<150)
[2024-03-02 13:42] LABS: FREE T4 0.98 NG/DL (0.89-1.76); THYROID STIMULATING HORMONE 1.959 uIU/ML (0.55-4.78)
[2024-03-02 13:43] LABS: TESTOSTERONE 664 NG/DL (241-827)
[2024-03-02 13:53] LABS: HEMOGLOBIN A1c 5.1 % (4.0-6.0)
== END ==
LOC: M WUC 09:42
PROVIDERS: ATTEND Family Medicine
DX: G43.409 Hemiplegic migraine, not intractable, without status migrainosus (principal); Z86.39 Personal history of other endocrine, nutritional and metabolic disease; Z12.5 Encounter for screening for malignant neoplasm of prostate; F41.9 Anxiety disorder, unspecified; E78.5 Hyperlipidemia, unspecified; Z13.1 Encounter for screening for diabetes mellitus
CPT/HCPCS: 36415; 80053; 80061; 83036; 84403; 84439; 84443; 85027; G0103